=== PATIENT | female | born 1985 | race Caucasian/White ===

== ENCOUNTER 2018-09-24 06:10 | Day surgery (SDC) | payer BC ==
[2018-09-24] VITALS (14 sets, daily range): BP systolic 113–140; BP diastolic 65–90; PULSE 78–100; RESP 17–24; Ht 162.6 cm; Wt 84.8 kg
[~2018-09-24] VITALS: Ht 162.6 cm; Wt 84.8 kg
[~2018-09-24 06:10] MED LIST: ACETAMINOPHEN 500 MG TAB PO ONE; CLINDAMYCIN 600 MG/D5W (PMX) 50 ML IVPB ONE; SOD CHLORIDE 0.9% 1,000 ML IV SCH
[2018-09-24] MEDS ORDERED: DESFLURANE 15 MIN ONE (07:00)
[2018-09-24] MEDS ORDERED: LIDOCAINE 2% (SDV) 5 ML INJ ONE (07:00)
[2018-09-24] MEDS ORDERED: CEFAZOLIN 1 GM INJ ONE (07:00)
[2018-09-24] MEDS ORDERED: PROPOFOL 200 MG INJ ONE (07:00)
[2018-09-24] MEDS ORDERED: CARB200C ORAL (07:24)
[2018-09-24] MEDS ORDERED: LAMO100T ORAL (07:24)
[2018-09-24] MEDS ORDERED: LEVE750T11 ORAL (07:24)
[2018-09-24] MEDS ORDERED: TOPI100T11 ORAL (07:24)
--- NOTE | 2018-09-24 07:32 | PREAC ---
Date/Time of Note Date/Time of Note DATE: 09/24/18 TIME: 07:30 Anesthesia Eval and Record Evaluation Time Pre-Procedure Interview DATE: 09/24/18 TIME: 07:30 Age 33 Sex female NPO: 8 hrs Preoperative diagnosis Cholelithiasis Planned procedure Laparoscopic cholecystectomy Past Medical History Past Medical History: Includes Pulm: Asthma Neuro: Seizure disorder GI: GERD (under control) Surgery & Anesthesia Issues No known issue Meds Anticoagulation: No Beta Severino within 24 hr: No Reason Beta Severino not given: Pt. not on B-Severino Reported Medications Topiramate* (Topiramate*) 100 Mg Tablet, 1 TAB ORAL BID 09/24/18 Carbamazepine (Carbamazepine) 200 Mg Cpmp.12hr, 1 CAP ORAL Q8 09/24/18 Lamotrigine* (Lamotrigine*) 100 Mg Tablet, 1 TAB ORAL BID 09/24/18 Levetiracetam (Levetiracetam XR*) 750 Mg Tab.er.24h, 1 TAB ORAL BID 09/24/18 Current Medications Sodium Chloride 1,000 ml @ 75 mls/hr [id number] IV ; Start 09/24/18 at 06:00; Stop 09/24/18 at 19:19 Meds reviewed: Yes Allergies Coded Allergies: Penicillins (Unverified Allergy, Unknown, 09/24/18) Allergies Reviewed: Yes Labs/Studies Labs Reviewed: Reviewed by anesthesiologist test: Negative Studies: ECG (nsr, probable infarct) Pre-procedure Exam Last vitals Vital Signs Date Temp Pulse Resp B/P (MAP) Pulse Ox O2 O2 Flow FiO2 Time Delivery Rate 09/24/18 97.9 82 18 118/74 100 Room Air 07:12 (89) Airway: Adequate mouth opening, Adequate thyromental dist Mallampati: Mallampati II Teeth: Normal Lung: Normal Heart: Normal ASA Physical Status ASA physical status: 2 Emergency: None Planned Anesthetic General/MAC: ETT Nerve block: TAP (bilateral) Pre-operative Attestations Prior to commencing anesthesia and surgery, the patient was re-evaluated, there was verification of: *The patient's identity *The results of appropriate recent lab work and preoperative vital signs *The above evaluation not changing prior to induction *Anesthetic plan, risk benefits, alternative and complications discussed with patient/family; questions answered; patient/family understands, accepts and wishes to proceed. IZZY SUÁREZ Sep 24, 2018 07:32
[2018-09-24] MEDS ORDERED: ROPIVACAINE 0.5 % 30 ML VIAL ONE (07:48)
[2018-09-24] MEDS ORDERED: FENTAnyl 50 MCG/ML VIAL ONE ×2 (07:48→09:09)
[2018-09-24] MEDS ORDERED: MIDAZOLAM 1 MG/ML 2 ML INJ ONE (07:48)
[2018-09-24] MEDS ORDERED: ONDANSETRON 4 MG INJ ONE (07:55)
[2018-09-24] MEDS ORDERED: FAMOTIDINE 20 MG INJ ONE (07:55)
[2018-09-24] MEDS ORDERED: ROCURONIUM 50 MG INJ ONE (07:56)
[2018-09-24] MEDS ORDERED: BUPIVACAINE 0.25%/EPI (SDV) 30 ML INJ ONE (07:59)
[2018-09-24] MEDS ORDERED: morphine (1 MG/ML) 10ML SYRINGE IV PRN ×2 (08:00)
[2018-09-24] MEDS ORDERED: ALBUTEROL 0.083% (NEB) 2.5 MG/3 ML AMP HHN PRN (08:00)
[2018-09-24] MEDS ORDERED: HYDROmorphONE 1 MG/5 ML IV SYRINGE IV PRN ×3 (08:00)
[2018-09-24] MEDS ORDERED: OXYCODONE/ACETAMINOPHEN (5/325) TAB PO PRN ×2 (08:00)
[2018-09-24] MEDS ORDERED: DIPHENHYDRAMINE 50 MG INJ IV PRN (08:00)
[2018-09-24] MEDS ORDERED: FENTAnyl 50 MCG/ML VIAL IV PRN ×2 (08:00)
[2018-09-24] MEDS ORDERED: LABETALOL HCL 20MG INJ IV PRN (08:00)
[2018-09-24] MEDS ORDERED: ONDANSETRON 4 MG INJ IV PRN ×2 (08:00→10:00)
--- NOTE | 2018-09-24 08:17 | HPN ---
Date/Time of Note Date/Time of Note DATE: 09/24/18 TIME: 08:17 Interval H&P Admission Note Pt. seen H&P reviewed: No system changes CANDACE KNIGHT MD Sep 24, 2018 08:17
[2018-09-24] MEDS ORDERED: ROPIVACAINE 0.2% 20 ML VIAL ONE (08:19)
[2018-09-24] MEDS ORDERED: SUGAMMADEX SODIUM 200 MG/2 ML VIAL IV ONE (08:40)
--- NOTE | 2018-09-24 09:45 | OPR ---
Date/Time of Note Date/Time of Note DATE: 09/24/18 TIME: 09:39 Operative Report Procedure Date: Sep 24, 2018 Preoperative Diagnosis Cholelithiasis/chronic cholecystitis Postoperative Diagnosis Cholelithiasis/chronic cholecystitis Operation/Procedure Performed Laparoscopic cholecystectomy Surgeon see signature line Spike Machine Feeder None Anesthesia Type: general Anesthesiologist: IZZY SUÁREZ Estimated Blood Loss: minimal Transfusion none Specimen Gallbladder Grafts/Implants none Complications none Pt Condition Post Procedure: stable Disposition: PACU Indications The patient is a overweight 33-year-old female with a history of seizure disorder who presented to the office with right upper quadrant abdominal pain. The patient had clinical signs and symptoms of biliary colic and chronic cholecystitis which was confirmed via an ultrasound which showed the presence of multiple gallstones. The patient was scheduled for laparoscopic cholecystectomy; possible open as definitive treatment to prevent further sequelae of gallstone disease which include but are not limited to: Gangrenous cholecystitis, choledocholithiasis, gallstone pancreatitis, ascending cholangitis, etc. All risks and benefits of the procedure including but not limited to: Wound infecti on, excessive bleeding, common bile duct injury, postoperative biliary leak, retained common bile duct stone, injury to intra-abdominal organs, conversion to open procedure, possible need for subsequent surgeries, etc. were all explained to the patient in full detail. She fully understood and wished to proceed with the procedure. Informed consent was therefore obtained. The patient was cleared by her neurologist prior to the procedure. Procedure Description The patient was brought to the operating room and placed supine on the operating table. Bilateral sequential compression devices were placed on both lower extremities. A dose of broad-spectrum perioperative intravenous antibiotics was given. After the induction of smooth general endotracheal anesthesia the patient's abdomen was prepped and draped in the standard surgical fashion. After performance of the surgical timeout a 5 mm incision was made in the inferior umbilicus and a Veress needle was used to access the intra-abdominal cavity atraumatically. Pneumoperitoneum was then obtained and the Veress needle was exchanged for a 5 mm trocar through which a 5 mm laparoscope was placed. Three further working ports were then placed a 12 mm port in the sub-xiphoid region and two 5 mm ports in the right upper quadrant. All port sites were anesthetized with 0.25% Marcaine with epinephrine prior to incision. A distended gallbladder filled with stones was identified in the right upper quadrant. Using atraumatic graspers the gallbladder was grasped and retracted superiorly and laterally exposing the area of Berg's pouch. There was thick peritoneal fat enveloping the gallbladder. Dissection was begun in this area using a combination of blunt dissection and hook electrocautery. The cystic duct was identified as it entered straight into the neck of the gallbladder. It was dissected free of surrounding tissues and clipped proximally and distally x 3 and transected using EndoShears. Dissection was then continued posteriorly. Accessory artery within the peritoneal fat was identified. It was clipped distally and transected proximally using the hook electrocautery. The cystic artery was then identified posteriorly and dissected free of surrounding tissues. It too was clipped proximally and distally x 2 and transected using EndoShears. The gallbladder was then dissected off the liver bed using electrocautery. Once completely free the gallbladder was placed in an Endo Catch bag and withdrawn through the subxiphoid port site and passed off the field as specimen. Subxiphoid incision had to be slightly enlarged in order to withdraw the distended gallbladder. Hemostasis was then inspected for and noted to be total. Pneumoperitoneum was then released and all trochars were withdrawn under direct vision. The fascia of the subxiphoid port site was reapproximated using 0 Vicryl sutures in running fashion. The subcutaneous tissues were irrigated with warm normal saline. The skin was then reapproximated using 4-0 Monocryl sutures in subcuticular fashion. The incisions were cleaned and Dermabond was applied to the incisions and the patient was awoken from anesthesia and transported to the recovery room in stable condition. All counts were correct at the end of the case x 2. CANDACE KNIGHT MD Sep 24, 2018 09:44
--- NOTE | 2018-09-24 09:50 | PAC ---
Date/Time of Note Date/Time of Note DATE: 09/24/18 TIME: 09:49 Post-Anesthesia Notes Post-Anesthesia Note Last documented vital signs Vital Signs Date Temp Pulse Resp B/P Pulse Ox O2 O2 Flow FiO2 Time (MAP) Delivery Rate 09/24/18 97.9 98.3 82 94 18 18 118/74 100 100 Room 07:12 094 (89) 121 Air 6L face mask Activity: WNL Respiratory function: WNL Cardiovascular function: WNL Mental status: Baseline Pain reasonably controlled: Yes Hydration appropriate: Yes Nausea/Vomiting absent: Yes IZZY SUÁREZ Sep 24, 2018 09:50
[2018-09-24] MEDS ORDERED: KETOROLAC 30 MG INJ IV PRN (10:00)
[2018-09-24] MEDS ORDERED: IBUPROFEN 600 MG TAB PO PRN (10:00)
[2018-09-24] MEDS ORDERED: HYDROCODONE/APAP (5/325) TAB PO PRN ×2 (10:00)
[2018-09-24] MEDS ORDERED: morphine 2 MG INJ IV PRN (10:00)
== END 2018-09-24 11:38 | disposition home or self-care (01) ==
LOC: SDS 06:10
PROVIDERS: ATTEND Surgery
DX: K80.20 Calculus of gallbladder without cholecystitis without obstruction (principal)
CPT/HCPCS: 47562; 84703; 88304; J0690; J2250; J2405; J2795; J3010; Z7512; Z7610